=== PATIENT | male | born 1945 ===

== ENCOUNTER 2022-09-21 16:03 | Inpatient (IN) ==
[2022-09-21] MEDS ORDERED: NS 0.9% 1000 ml BAG 1,000 ML IV ONE (16:38)
[2022-09-21 17:06] LABS: ABS Eosinophils 0.1 10^3/uL (0.0-0.5); ABS Monocytes 0.4 10^3/uL (0.0-1.1); ABS Neutrophils 5.3 10^3/uL (1.5-7.6); Eosinophil % 0.9 %; Hematocrit 41.6 % (38-53); Hemoglobin 14.5 g/dL (13.2-16.3); Lymphocyte % 15.1 %; Mean Corpuscular Hemoglobin 30.5 pg (27-33); Mean Corpuscular Hgb Conc 34.9 g/dL (31-36); Mean Corpuscular Volume 87.4 fL (80-97); Mean Platelet Volume 8.7 fL (7.5-11.2); Nucleated Red Blood Cells % 0.1 /100 WBC (0.0-0.4); Platelet Count 188 10^3/uL (150-450); Red Blood Count 4.76 10^6/uL (4.06-5.63); Red Cell Distribution Width 13.3 % (12-17); White Blood Count 6.9 10^3/uL (3.6-10.2)
[2022-09-21 17:12] LABS: INR 1.09 (0.88-1.18)
[2022-09-21 17:19] LABS: Albumin 3.9 g/dL (3.2-5.2); Albumin/Globulin Ratio 1.6 (1-3); C Reactive Protein 1.39 mg/L (<8.01); Calcium 9.3 mg/dL (8.6-10.3); Creatinine, Serum 1.06 mg/dL (0.67-1.17); Globulin 2.5 g/dL (2-4); Magnesium 1.9 mg/dL (1.9-2.7); Phosphorus 2.5 mg/dL (2.5-5.0); Potassium 3.7 mmol/L (3.5-5.0); Total Bilirubin 0.3 mg/dL (0.2-1.0); Total Protein 6.4 g/dL (6.4-8.9); eGFR CKD-EPI 73.2 (>60)
[2022-09-21] MEDS ORDERED: Iohexol 350 (CONTRAST) 500 ML MDV IV ONE (17:24)
[2022-09-21 18:27] LABS: Urine Appearance Clear; Urine Bilirubin Negative (Negative); Urine Blood Negative (Negative); Urine Color Straw; Urine Glucose Negative (Negative); Urine Ketones 1+ (Negative); Urine Nitrite Negative (Negative); Urine Protein Negative (Negative); Urine Urobilinogen Negative (Negative)
[2022-09-21 18:36] LABS: High Sensitivity Troponin 1 Hr 5 pg/mL (<20)
[2022-09-21] MEDS: Enoxaparin 40 MG/0.4 ML SYR SUBCUT SCH (21:22)
[2022-09-22 05:30] LABS: ABS Basophils 0.1 10^3/uL (0.0-0.1); ABS Eosinophils 0.3 10^3/uL (0.0-0.5); ABS Lymphocytes 1.9 10^3/uL (1.0-4.8); ABS Monocytes 0.8 10^3/uL (0.0-1.1); ABS Neutrophils 3.6 10^3/uL (1.5-7.6); Hematocrit 38.4 % (38-53); Hemoglobin 13.6 g/dL (13.2-16.3); Mean Corpuscular Hemoglobin 31.1 pg (27-33); Mean Corpuscular Hgb Conc 35.5 g/dL (31-36); Mean Corpuscular Volume 87.5 fL (80-97); Mean Platelet Volume 8.7 fL (7.5-11.2); Platelet Count 178 10^3/uL (150-450); Red Blood Count 4.39 10^6/uL (4.06-5.63); Red Cell Distribution Width 13.1 % (12-17); White Blood Count 6.6 10^3/uL (3.6-10.2)
[2022-09-22 05:31] LABS: Eosinophil % 4.9 %; Lymphocyte % 28.3 %; Nucleated Red Blood Cells % 0.1 /100 WBC (0.0-0.4)
[2022-09-22 05:47] LABS: Calcium 7.6 mg/dL (8.6-10.3); Creatinine, Serum 0.93 mg/dL (0.67-1.17); HDL Cholesterol 30.6 mg/dL; Potassium 3.5 mmol/L (3.5-5.0); eGFR CKD-EPI 85.6 (>60)
[2022-09-22 06:32] LABS: TSH Ultra Thyroid Stim Horm 3.39 mcIU/mL (0.34-5.60)
[2022-09-22] MEDS: Enoxaparin 40 MG/0.4 ML SYR SUBCUT SCH (23:43)
[2022-09-23 04:16] LABS: Hematocrit 39.1 % (38-53); Mean Corpuscular Hemoglobin 30.6 pg (27-33); Mean Corpuscular Hgb Conc 35.9 g/dL (31-36); Mean Corpuscular Volume 85.4 fL (80-97); Mean Platelet Volume 8.6 fL (7.5-11.2); Platelet Count 180 10^3/uL (150-450); Red Blood Count 4.57 10^6/uL (4.06-5.63); Red Cell Distribution Width 13.1 % (12-17); White Blood Count 6.5 10^3/uL (3.6-10.2)
[2022-09-23 04:32] LABS: Creatinine, Serum 0.94 mg/dL (0.67-1.17); Potassium 3.6 mmol/L (3.5-5.0); eGFR CKD-EPI 84.5 (>60)
[2022-09-23] MEDS: Enoxaparin 40 MG/0.4 ML SYR SUBCUT SCH (20:36)
[2022-09-24 05:18] LABS: ABS Basophils 0.1 10^3/uL (0.0-0.1); ABS Eosinophils 0.4 10^3/uL (0.0-0.5); ABS Monocytes 0.8 10^3/uL (0.0-1.1); ABS Neutrophils 3.9 10^3/uL (1.5-7.6); ABS Nucleated RBC 0.01 10^3/ul; Eosinophil % 5.1 %; Hemoglobin 14.9 g/dL (13.2-16.3); Lymphocyte % 27.6 %; Mean Corpuscular Hemoglobin 30.4 pg (27-33); Mean Corpuscular Hgb Conc 35.4 g/dL (31-36); Mean Corpuscular Volume 85.9 fL (80-97); Mean Platelet Volume 8.9 fL (7.5-11.2); Nucleated Red Blood Cells % 0.1 /100 WBC (0.0-0.4); Platelet Count 185 10^3/uL (150-450); Red Blood Count 4.89 10^6/uL (4.06-5.63); Red Cell Distribution Width 13.1 % (12-17); White Blood Count 7.1 10^3/uL (3.6-10.2)
[2022-09-24 05:34] LABS: Albumin 3.8 g/dL (3.2-5.2); Albumin/Globulin Ratio 1.5 (1-3); Calcium 9.1 mg/dL (8.6-10.3); Creatinine, Serum 0.93 mg/dL (0.67-1.17); Globulin 2.5 g/dL (2-4); Potassium 3.9 mmol/L (3.5-5.0); Total Bilirubin 0.4 mg/dL (0.2-1.0); Total Protein 6.3 g/dL (6.4-8.9); eGFR CKD-EPI 85.6 (>60)
[2022-09-24] MEDS: Enoxaparin 40 MG/0.4 ML SYR SUBCUT SCH (21:49)
[2022-09-25] MEDS ORDERED: NS 0.9% 500 ml BAG 500 ML IV SCH (11:00)
[2022-09-25 12:19] VITALS: BP 114/64
== END 2022-09-25 13:37 | disposition home or self-care (01) | DRG 65 ==
LOC: ED 16:03 → EDHOLD 16:03 → SUATTDRO 20:09 → ICU 09-22 20:45
PROVIDERS: ADMIT Internal Medicine; ATTEND Internal Medicine Critical Care Medicine